=== PATIENT | male | born 1980 ===

== ENCOUNTER 2021-12-27 08:51 | Emergency (ER) | payer SELFPAY ==
[2021-12-28] MEDS ORDERED: KETOROLAC 30 MG/1 ML INJ IV ONE (02:34)
[2021-12-28] MEDS ORDERED: ONDANSETRON 4 MG/2 ML INJ IV ONE (02:34)
--- NOTE | 2021-12-28 02:54 | Emergency Department Report ---
HPI - General Chief Complaint: Abdominal Pain PUI?: No Time Seen by Provider: 12/28/21 02:14 - HPI HPI: Of note patient is [place]cu[place]-speaking and declines to have language line space systems operations craftsman provided to him. Patient is requesting that his sister provide translation for him. Patient advised to have a formal language line space systems operations craftsman served as an space systems operations craftsman on his behalf given that the use of late people the results and miscommunication and areas in his care. Patient verbalized understanding of this but again refuses a language line space systems operations craftsman. Per my assessment he is awake alert and oriented to person place time situation and is mentating well. He has decision-making capacity. He is requesting to have a sister provide interpretation. 41-year-old male with no known past medical history presents for evaluation of right flank pain radiating to his right lower quadrant starting 2 days ago. Patient describes it as a pressure sensation constant and radiating to the areas above. No aggravators or alleviators. No falls or trauma. Sister reports he had nausea and vomiting prior to arrival. Last bowel movement was 2 days ago. Patient denies obstipation or constipation. No melena hematochezia or hematemesis. He reports discomfort with urination but no visible blood or urinary retention. No prior history of similar symptoms in the past. Pain currently 10 out of 10. Patient reports he is not taking any medication at home for symptoms. Denies any tingling or numbness in his arms or legs, no fecal or urinary incontinence or retention. No IV drug abuse. ED Past Medical Hx - Past Medical History Previous Medical History?: No - Surgical History Past Surgical History?: No - Family History Family history: no significant - Social History Smoking Status: Never Smoker Substance Use Type: None - Medications Home Medications: Home Medications Medication Instructions Recorded Confirmed Last Taken Type Ibuprofen [Motrin 800 MG tab] 800 mg PO Q8HR PRN 7 Days #21 12/28/21 Unknown Rx tablet Ondansetron [Zofran Odt] 4 mg PO Q8HR 4 Days #12 tab.rapdis 12/28/21 Unknown Rx Tamsulosin [Flomax] 0.4 mg PO QDAY 30 Days #30 cap 12/28/21 Unknown Rx ED Review of Systems ROS: Stated complaint: SEVERE STOMACH PAIN Other details as noted in HPI Comment: All other systems reviewed and negative Constitutional: no symptoms reported Eyes: as per HPI ENT: as per HPI Respiratory: no symptoms reported Cardiovascular: denies: chest pain, palpitations, dyspnea on exertion, orthopnea, edema, syncope, paroxysmal nocturnal dyspnea Endocrine: denies: no symptoms reported, see HPI, excessive sweating, flushing, intolerance to cold, intolerance to heat, increased hunger, increased thirst, increased urine, unexplained weight gain, unexplained weight loss Gastrointestinal: abdominal pain, nausea, vomiting. denies: diarrhea, constipation, hematemesis, melena, hematochezia Genitourinary: as per HPI, urgency, dysuria. denies: frequency, hematuria, discharge, testicular pain, testicular mass, other Musculoskeletal: back pain. denies: joint swelling, arthralgia, myalgia, other Skin: denies: as per HPI, rash, lesions Neurological: denies: as per HPI, headache, weakness, numbness, paresthesias, confusion, abnormal gait Psychiatric: denies: anxiety, depression, auditory hallucinations, visual hallucinations, homicidal thoughts, suicidal thoughts Hematological/Lymphatic: denies: as per HPI, easy bleeding, easy bruising, swollen glands Physical Exam - Physical Exam Vital Signs: Vital Signs 12/27/21 09:19 Temperature 98.5 F Pulse Rate 77 Respiratory 18 Rate Blood Pressure 171/115 [Left] O2 Sat by Pulse 98 Oximetry General: Gen: pt is well appearing, asleep upon this provider's entrance to the examination room, but easily arousable HEENT: Normocephalic atraumatic pupils equally round and reactive to light extraocular muscles intact sclera anicteric Neck: Full range of motion, no midline spinal tenderness palpation, no JVD, no carotid bruits, no nuchal rigidity CVS: S1-S2 regular rate and rhythm with no gallops rubs or murmurs, chest wall nontender Pulmonary: Clear to auscultation bilaterally, no wheezes rales or rhonchi Abdomen: Soft nondistended nontender no guarding or rebound tenderness, no palpable deformities or step-offs, normal active bowel sounds, no hepatosplenomegaly, no pulsatile masses, no CVA tenderness : Deferred Extremities: No cyanosis no clubbing no edema, intact distal peripheral pulses, Integumentary: Skin normal, no petechia no purpura no abscess no lacerations no evidence of trauma no evidence of infection Neuro: Patient is awake alert and oriented to person place time situation, men tating well, cranial nerves II through XII intact, no focal neurodeficits, sensation grossly tact Psych: Calm cooperative, mood affect normal ED Course Vital Signs 12/27/21 09:19 Temperature 98.5 F Pulse Rate 77 Respiratory 18 Rate Blood Pressure 171/115 [Left] O2 Sat by Pulse 98 Oximetry ED Medical Decision Making - Lab Data Result diagrams: 12/28/21 02:41 12/28/21 02:41 - Radiology Data Radiology results: report reviewed - Medical Decision Making 41-year-old male presents for several days of right flank pain radiating to his right lower quadrant. Vital signs stable. Serum labs reviewed. Creatinine normal. Patient has small amount of blood in urine. CT demonstrates 2 mm stone in right utero vesicular junction with moderate high-grade obstruction. The patient was reassessed multiple times. Upon initial presentation he was asleep and comfortable appearing in a stretcher. He was given Toradol for pain and reports complete resolution of his pain. He is tolerating p.o. here without difficulty or reproduction of worsening of his symptoms. Patient deemed stable for discharge to home. PT given referral for urologist, Dr. Fitch., to undergo outpatient urology evaluation. Prior to discharge patient was given strict verbal and written return precautions. Critical care attestation.: If time is entered above; I have spent that time in minutes in the direct care of this critically ill patient, excluding procedure time. ED Disposition Clinical Impression: Ureteral calculus, right, Kidney stone on right side Disposition: 01 HOME / SELF CARE / HOMELESS Is pt being admited?: No Does the pt Need Aspirin: No Condition: Stable Instructions: Ureteroscopy, Kidney Stones, [id number] Additional Instructions: Telephone Dr. Fitch, the neonatal nurse urologist, to schedule an immediate outpatient follow-up appointment for assessment and further management. This is very important. Take ibuprofen as needed for pain. You may take acetaminophen for additional pain management and alternate acetaminophen with ibuprofen. Take Zofran as needed for nausea. Finally take Flomax daily. This medication has been reported to believe to help kidney stones passed. If your stone does not pass on its own, sometimes the urologist may decide that you will require a surgical procedure which will help the stone pass. Prescriptions: Tamsulosin [Flomax] 0.4 mg PO QDAY 30 Days #30 cap Ibuprofen [Motrin 800 MG tab] 800 mg PO Q8HR PRN 7 Days #21 tablet PRN Reason: Pain, Moderate (4-6) Ondansetron [Zofran Odt] 4 mg PO Q8HR 4 Days #12 tab.rapdis Referrals: DOUG FITCH MD [Staff Physician] - 3-5 Days
[2021-12-28 03:00] LABS: Basophils # (Auto) 0.1 K/mm3 (0.0-0.1); Basophils % (Auto) 0.5 % (0.0-1.8); Eosinophils # (Auto) 0.1 K/mm3 (0.0-0.4); Eosinophils % (Auto) 0.9 % (0.0-4.3); Hematocrit 50.3 % (35.5-45.6); Hemoglobin 16.8 gm/dl (11.8-15.2); Lymphocytes # (Auto) 2.3 K/mm3 (1.2-5.4); Lymphocytes % (Auto) 21.6 % (13.4-35.0); Mean Corpuscular HGB Conc 34 % (32-34); Mean Corpuscular Volume 93 fl (84-94); Monocytes # (Auto) 1.1 K/mm3 (0.0-0.8); Monocytes % (Auto) 10.1 % (0.0-7.3); Platelet Count 183 K/mm3 (140-440); Red Blood Count 5.43 M/mm3 (3.65-5.03); Red Cell Distribution Width 13.1 % (13.2-15.2)
[2021-12-28 03:14] LABS: Alanine Aminotransferase 33 units/L (7-56); Albumin 4.1 g/dL (3.9-5); BUN/Creatinine Ratio 16; Blood Urea Nitrogen 19 mg/dL (9-20); Hemolysis Index 8
[2021-12-28 03:15] LABS: Bilirubin,Urine NEG (Negative); Blood,Urine SM (Negative); Color,Urine Straw (Yellow); Protein,Urine <15 mg/dL mg/dL (Negative); Urobilinogen,Urine < 2.0 mg/dL (<2.0)
[2021-12-28 03:17] VITALS: BP 148/67
[2021-12-28 03:22] LABS: Amphetamine Screen,Urine PRESUMPTIVE NEGATIVE; Benzodiazepines Screen,Urine PRESUMPTIVE NEGATIVE; Cannabinoid Screen,Urine PRESUMPTIVE NEGATIVE; Cocaine Screen,Urine PRESUMPTIVE NEGATIVE; Methadone Screen,Urine PRESUMPTIVE NEGATIVE; Opiate Screen,Urine PRESUMPTIVE NEGATIVE
[2021-12-28] MEDS ORDERED: TAMSULOSIN 0.4 MG CAP PO ONE (05:08)
--- NOTE | 2021-12-28 15:56 | Cat Scan Report ---
CT ABDOMEN AND PELVIS WITH CONTRAST INDICATION / CLINICAL INFORMATION: R flank pain radiating to RLQ. TECHNIQUE: Axial CT images were obtained through the abdomen and pelvis after Omnipaque 300, 100 cc I V contrast. All CT scans at this location are performed using CT dose reduction for ALARA by means o f automated exposure control. COMPARISON: None available. FINDINGS: LOWER CHEST: Mild bibasilar atelectasis. LIVER: No significant abnormality. GALLBLADDER: No significant abnormality. BILE DUCTS: No significant abnormality. PANCREAS: No significant abnormality. SPLEEN: No significant abnormality. ADRENALS: No significant abnormality. RIGHT KIDNEY / URETER: 2 mm stone at the ureterovesical junction with moderate/high-grade obstruction . LEFT KIDNEY / URETER: No significant abnormality. STOMACH / SMALL BOWEL: No significant abnormality. COLON: No significant abnormality. APPENDIX: No significant abnormality. PERITONEUM: No free fluid. No free air. No fluid collection. LYMPH NODES: No significant adenopathy. VASCULAR STRUCTURES: No significant abnormality. URINARY BLADDER: No significant abnormality. REPRODUCTIVE ORGANS: No significant abnormality. ADDITIONAL FINDINGS: None. SKELETAL SYSTEM: No significant abnormality. IMPRESSION: 2 mm stone right ureterovesical junction with moderate/high-grade obstruction. Signer Name: Mikie Farias MD Signed: 12/28/2021 4:12 AM Workstation Name: [id number]
== END 2021-12-28 06:00 | disposition home or self-care (01) ==
LOC: ED 08:51
DX: N20.2 Calculus of kidney with calculus of ureter (principal)
CPT/HCPCS: 36415; 74177; 80053; 80307; 81001; 85025; 96374; 96375; 99284; J1885; J2405; Q9967